=== PATIENT | female | born 1995 | race Caucasian/White ===

== ENCOUNTER 2019-08-18 23:35 | Observation (INO) | payer MEDICAID, SELFPAY ==
--- NOTE | 2019-08-18 23:35 | OBADM ---
This patient, Krissy Hobbs, admitted to the OB room [facility] for observation. Patient/family oriented to hospital policies and general routines including ID bracelet, bed and alarms, visiting hours, pain management, procedures, bathroom and other care routines, personal items, smoking policy, room service/diet, and visiting hours. Patient/Family are encouraged to report perceived risks to care and to ask questions if they do not understand what they are told or what they should do.
[2019-08-19] VITALS: BMI 64.4
[2019-08-19 00:18] VITALS: BP 94/75; PULSE 122
--- NOTE | 2019-08-19 01:10 | PC.NURSE ---
Nitrazine test performed. Test negative for amniotic fluid presence.
--- NOTE | 2019-08-19 01:15 | PC.NURSE ---
Dr. Hernández notified of patient complaint of bilateral hip pain, back pain, vaginal pain. Patient reports pain over the last 3 weeks that increases with movement. Patient also reports SOB with movement. Patient is a walk-in patient who had care through 06/21/[address] Rose in [place], [place]. has been sent to our unit and was reviewed by RN. Patient states she has not had an OB appointment since 06/21/2019 because she has recently moved and has not established care. Nitrazine test was performed after patient reported increased discharge for 3 weeks, nitrazine results were negative for amniotic fluid. FHT reactive category 1. No contractions noted via TOCO monitoring and patient denies cramping or abdominal tightening. VSS. Orders received for UA, Urine drug screen, GBS collected, and SVE.
[2019-08-19 01:22] VITALS: BP 94/75; PULSE 122
[2019-08-19 01:56] LABS: Add Urine Microscopic? YES; Amorphous Sediment Urine Few; Appearance Urine Cloudy (Clear); Bacteria Urine Trace /hpf; Bilirubin Urine Negative (Negative); Blood Urine Negative (Negative); Color Urine Yellow (Yellow); Glucose Urine UA Negative (Negative); Ketones Urine Negative (Negative); Leukocyte Esterase Ur 1+ LEU/UL (Negative); Mucus Urine Rare /lpf; Nitrate Urine Negative (Negative); Protein Urine Negative (Negative); RBC Urine 0-2 /hpf (0-2); Squamous Epithelial Cell Urine Many /hpf (Few); Urobilinogen Urine Negative mg/dL (<2.0); WBC Urine 0-3 /hpf
--- NOTE | 2019-08-19 01:59 | PC.NURSE ---
Dr. Hernández notified of UA results. SVE was closed/thick/high. Order for discharge given. Patient to call for follow-up tomorrow.
--- NOTE | 2019-08-19 02:11 | PC.NURSE ---
Discharge information reviewed with patient. Patient instructed to call Dr. Hernández's office in AM to schedule up follow-up appointment. Patient signed consent for release of information to Dr. Hernández's office. Patient educated on importance of care and establishing an OB prior to delivery. Patient states understanding.
[2019-08-19 02:12] LABS: Amphetamine Screen Urine Negative (Negative); Barbiturate Screen Urine Negative (Negative); Benzodiazepines Screen Urine Negative (Negative); Cannabinoid Screen Urine Negative (Negative); Cocaine Screen Urine Negative (Negative); Methadone Screen Urine Negative (Negative); Opiate Screen Urine Negative (Negative); Phencyclidine Screen Urine Negative (Negative)
--- NOTE | 2019-09-04 10:18 | P.PNOB_ITS ---
OB - Triage/Final Diagnosis Evaluation Laboratory results: Laboratory Tests 08/19/19 08/19/19 01:41 01:42 Urine Color Yellow Urine Appearance Cloudy H Urine pH 7.0 Ur Specific Miller 1.020 Urine Protein Negative Urine Glucose (UA) Negative Urine Ketones Negative Ur Blood (Man) Negative Urine Nitrate Negative Urine Bilirubin Negative Urine Urobilinogen Negative Leukocyte Esterase Rfl 1+ H Urine RBC 0-2 Urine WBC 0-3 Ur Squamous Epith Cells Many H Amorphous Sediment Few H Urine Bacteria Trace Hyaline Casts 1-2 Urine Mucus Rare Urine Opiates Screen Negative Urine Methadone Screen Negative Ur Barbiturates Screen Negative Ur Phencyclidine Scrn Negative Ur Amphetamine Screen Negative U Benzodiazepines Scrn Negative Urine Cocaine Screen Negative U Cannabinoids Screen Negative Final Diagnosis (1) Back pain affecting : Code(s): O99.89 - Other specified diseases and conditions complicating , childbirth and the puerperium; M54.9 - Dorsalgia, unspecified Status: Acute
== END 2019-08-19 02:25 | disposition home or self-care (01) ==
PROVIDERS: Admitting Provider Obstetrics & Gynecology; Visit Provider Obstetrics & Gynecology
DX: O99.89 Other specified diseases and conditions complicating pregnancy, childbirth and the puerperium (principal); M54.9 Dorsalgia, unspecified; Z3A.35 35 weeks gestation of pregnancy
CPT/HCPCS: 59025; 80307; 81001; 87081; G0378; G0379

== ENCOUNTER 2023-12-28 23:37 | Emergency (ER) | payer OTHER, SELFPAY ==
[2023-12-28 23:37] VITALS: BP 119/70; PULSE 102; RESP 16; TEMP 38.5; O2SAT 93
[2023-12-29] MEDS: SODIUM CHLORIDE 0.9% IV 1,000 ML 999 ML IV CONT (00:12)
[2023-12-29] MEDS: ONDANSETRON INJ 4 MG/2 ML VIAL IV PUSH (00:12)
[2023-12-29] MEDS: KETOROLAC 30 MG/ML VIAL (*BKC) IV PUSH (00:12)
[2023-12-29 00:21] LABS: Alanine Aminotransferase 58 U/L (14-59); Albumin Level 3.2 g/dL (3.4-5.0); Alkaline Phosphatase 45 U/L (46-116); Anion Gap 10 mmol/L (4-12); Aspartate Amino Transferase 57 U/L (15-37); Basophils Absolute Auto 0.02 K/mm3 (0.00-0.10); Basophils Percent Auto 0.7 % (0.0-1.0); Bilirubin,Total 0.5 mg/dL (0.00-1.00); Blood Urea Nitrogen 10 mg/dL (7-18); Calcium 8.3 mg/dL (8.5-10.1); Carbon Dioxide 28 mmol/L (21-32); Chloride 98 mmol/L (98-108); Eosinophils Absolute Auto 0.11 K/mm3 (0.02-0.50); Eosinophils Percent Auto 3.7 % (1.0-6.0); Estimated CRCL calculation 113 ml/min; Estimated Glomerular Filt Rate > 60; Glucose 109 mg/dL (70-99); Hematocrit 37.5 % (35.0-49.0); Immature Granulocyte Absolute 0.03 K/mm3 (0.00-0.00); Lipase 20 U/L (16-77); Lymphocytes Absolute Auto 0.47 K/mm3 (1.10-4.50); Mean Corpuscular Hemoglobin 28.8 pg (27.0-31.0); Mean Corpuscular Volume 89.9 fL (78.0-102.0); Mean Platelet Volume 8.8 fl (9.2-11.8); Monocytes Absolute Auto 0.28 K/mm3 (0.10-0.90); Monocytes Percent Auto 9.5 % (2.0-11.0); Neutrophils Absolute Auto 2.03 K/mm3 (1.70-7.20); Neutrophils Percent Auto 69.1 % (50.0-70.0); Osmolality Calculated 282 mOsm/kg (285-295); Platelet Count Result 172 K/mm3 (150-420); Potassium 3.9 mmol/L (3.5-5.1); Red Blood Count 4.17 M/mm3 (4.20-5.40); Sodium 136 mmol/L (136-145); Total Protein 6.8 g/dL (6.4-8.2); White Blood Count 2.9 K/mm3 (4.8-10.8)
[2023-12-29 00:23] LABS: Lactic Acid Reflex 0.8 mmol/L (0.4-2.0)
--- NOTE | 2023-12-29 00:32 | ED.NAVMDI ---
HPI - Nausea/Vomiting/Diarrhea General Chief complaint: Nausea/Vomiting/Diarrhea Stated complaint: Dizzy, Vomiting, Body Aches Time Seen by Provider: 12/28/23 23:45 Source: patient Mode of arrival: ambulatory Limitations: no limitations History of Present Illness HPI Narrative: patient is a 28-year-old female with a significant past medical history that presents today with nausea vomiting diarrhea. Patient states she has ongoing problem of diarrhea since yesterday. She has not been able the home also had a fever as well. He is taking OTC medications with no relief. She states that she is not able hold down any foods or liquids as well. MD elicited complaint: nausea, vomiting and diarrhea Onset (ago): day(s) Description of vomiting: food contents and watery Description of diarrhea: watery Associated nausea: Yes Associated abdominal pain: Yes Location of pain: diffuse Radiation: diffuse Pain consistency: constant Severity: moderate Pain scale (0-10): 4 Quality: stabbing Exacerbating factors: eating, vomiting and movement Relieving factors: bowel movement Associated symptoms: fever/chills, headaches, nausea/vomiting and altered mental status Related Data Allergies Allergy/AdvReac Type Severity Reaction Status Date / Time azithromycin AdvReac Hives Verified 12/28/23 23:52 [From Zithromax Z-Yaw] Review of Systems Review of Systems: All systems reviewed & are unremarkable except as noted in HPI and below Constitutional: Constitutional: Reports as per HPI Eyes: Eyes: Reports no additional eye complaints ENT: Reports system reviewed and no additional complaints, except as documented Cardiovascular: Cardiovascular: Reports no additional cardiovascular complaints Respiratory: Respiratory: Reports no additional respiratory complaints Gastrointestinal: Gastrointestinal: Reports no additional gastrointestinal complaints Genitourinary: Genitourinary: Reports no additional female genitourinary complaints Musculoskeletal: Musculoskeletal: Reports no additional musculoskeletal complaints Integumentary/Breasts: Skin/Breast: Reports system reviewed and no additional complaints, except as docu Neurologic: Reports system reviewed and no additional complaints, except as documented Psychiatric: Psychiatric: Reports no additional psychiatric complaints Endocrine: Endocrine: Reports no additional endocrine complaints Hematologic/Lymphatic: Hematologic/Lymphatic: Reports no additional hematologic/lymphatic complaints Allergic/Immunologic: Allergic/Immunologic: Reports no additional allergic/immunologic complaints Exam Const: General: healthy appearing Nutritional Appearance: well nourished Orientation/consciousness: patient oriented x3 HENMT: Head: normal to inspection Ears: external ears normal Face/Nose/Sinus: Normal external nose present Face and sinus: normal facial exam Eyes: Conjunctivae: conjunctivae normal Cornea: corneas normal Pupils: Equal, round and reactive pupils present EOM: EOMs intact bilaterally Neck: Neck: normal visual inspection Chest: Chest palpation & inspection: normal inspection of the chest Resp: Effort & Inspection: normal respiratory effort Auscultation: clear to auscultation bilaterally Cardio: Rate: regular rate Rhythm: regular rhythm GI: GI Palp: Yes Tenderness to palpation present (GI), Yes Guarding due to palpation present (GI) and Yes Rigid due to palpation : General: Yes bladder normal to palpation External Female Exam: normal external appearance Speculum Exam - Vagina: normal appearance of the vagina Speculum Exam - Cervix: normal appearance of the cervix Back/Spine/Pelvis: Back: no CVA tenderness Skin: General skin exam: normal color Rashes: no rashes Wounds: no wounds Neuro: General: patient oriented x3 Cranial nerves: Yes Nystagmus not present Speech: normal speech Extrem: General: normal to inspection Psych: Mental Status: mental status grossly normal
--- NOTE | 2023-12-29 00:42 | PC.NURSE ---
pt ambulated to restroom without incident.
[2023-12-29 01:17] VITALS: BP 122/70; PULSE 74; RESP 16; TEMP 38.2; O2SAT 93
== END 2023-12-29 01:17 | disposition home or self-care (01) ==
LOC: CHSED 12-29 01:08
PROVIDERS: Emergency Provider Family Medicine; PCP Physician Assistant
DX: K52.9 Noninfective gastroenteritis and colitis, unspecified (principal)
CPT/HCPCS: 36415; 80053; 83605; 83690; 85025; 96361; 96374; 96375; 99284; J1885; J2405; J7030

== ENCOUNTER 2025-01-22 21:46 | Emergency (ER) | payer OTHER, SELFPAY ==
[2025-01-22 21:46] VITALS: BP 121/102; PULSE 84; RESP 18; TEMP 36.2; O2SAT 97
--- OUTSIDE RECORDS SUMMARY | 2025-01-22 21:47 | XMS_ITS | Clinical Summary ---
Author Organization [facility] Address [address] [place] [id number] Care Team Providers Care Laborer Pole Crew Name Role Phone Adilson Marcial Primary Care Provider [phone] Allergies Active Allergy Reactions Criticality Noted Date Comments Azithromycin Hives 06/30/2022 Medications No known medications Active Problems No known active problems Social History Tobacco Use Types Packs/Day Years Used Date Smoking Tobacco: Never Smokeless Tobacco: Never Tobacco Cessation:Counseling Given: Not Answered Alcohol Use Standard Drinks/Week Comments Not Currently 0 (1 standard drink = 0.6 oz pur e alcohol) Comments No Sex and Gender Information Value Date Recorded Sex Assigned at Female 06/26/2024 2:36 PM [employer] Sex Female 12:54 PM CDT Gender Identity Not on file Sexual Orientation Not on file Last Filed Vital Signs Vital Sign Reading Time Taken Comments Blood Pressure 137/97 06/26/2024 2:00 PM [employer] Pulse 86 06/26/2024 2:00 PM [employer] Temperature 36.3 C (97.4 F) 06/26/2024 2:00 PM [employer] Respiratory Rate 20 06/26/2024 2:00 PM [employer] Oxygen Saturation 100% 06/26/2024 2:00 PM [employer] Inhaled Oxygen Concentration - - Weight 183.3 kg (404 lb) 06/26/2024 2:00 PM [employer] Height 157.5 cm (5' 2) 06/26/2024 2:00 PM [employer] Body Mass Index 73.89 06/26/2024 2:00 PM [employer] Plan of Treatment Health Maintenance Due Date Last Done Comments Cervical Cancer Screening Pap Smear (Age 21 to 29) Every 3 Years 1997 Cervical Cancer Screening 1997 Annual Physical 2000 Hepatitis C 2015 COVID-19 Vaccine (2023- season) 2024 DTaP, Tdap and Td Vaccines (9 - Td or Tdap) 03/10/2030 03/10/2020, 08/09/2019, 09/30/2018, Additional history exists Hepatitis B Vaccines Completed 03/21/1998, 1997, 1997 HPV Vaccines Completed 08/26/2012, 11/01/2012, 01/15/2012 Meningococcal Vaccine Completed 01/18/2015, 012 Meningococcal B Vaccine Aged Out No l onger eligible based on patient's age to complete this topic Pneumococcal Vaccine: Pediatrics (0 to 5 Years) and At-Risk Patients (6 to 49 Years) Aged Out No longer eligible based on patient's age to complete this topic RSV Immunizations Under 20 Months Aged Out No longer eligible based on patient's age to complete this topic Insurance [facility] Care Teams Laborer Pole Crew Relationship Specialty Start Date End Date Adilson Marcial PA PCP - General PHYSICIAN TRANSITION ASSISTANT 06/30/22
--- NOTE | 2025-01-22 22:02 | ED_ITS ---
HPI - General Adult General Chief complaint: Upper Respiratory Infection Stated complaint: sore throat Time Seen by Provider: 01/22/25 21:54 History of Present Illness HPI narrative: Krissy is a previously healthy 29F that presented to the ED with her daughter with sore throats and a low grade fever.. It started a few days ago. No CP, dyspnea, or vomiting. Related Data Allergies Allergy/AdvReac Type Severity Reaction Status Date / Time azithromycin (From Zithromax AdvReac Hives Verified 01/22/25 22:00 Z-Yaw) Review of Systems Review of Systems: All systems reviewed & are unremarkable except as noted in HPI and below Exam Const: General: cooperative, healthy appearing, comfortable, no acute distress, well developed, alert, awake and Physically active Orientation/consciousness: oriented to person, oriented to place and oriented to time HENMT: Head: normal to inspection, normocephalic and atraumatic Ears: hearing grossly normal bilaterally and external ears normal Face/Nose/Sinus: Normal external nose present Eyes: General: appearance normal, both eyes and all related structures Periorbital: periorbital findings normal Sclera: sclerae normal Pupils: Equal, round and reactive pupils present Neck: Neck: normal visual inspection Chest: Chest palpation & inspection: normal inspection of the chest Resp: Effort & Inspection: normal respiratory effort, able to speak in complete sentences and no respiratory distress Auscultation: clear to auscultation bilaterally Cardio: Jugular venous distension: no JVD Rate: regular rate Rhythm: regular rhythm Skin: General skin exam: normal color and no rashes or lesions noted Neuro: General: oriented to person, oriented to place and oriented to time Cranial nerves: Yes Equal, round and reactive pupils present Extrem: General: normal to inspection Course Vital Signs Vital signs: Vital Signs Temperature 97.1 F L 01/22/25 21:46 Pulse Rate 84 01/22/25 21:46 Respiratory Rate 18 01/22/25 21:46 Blood Pressure 121/102 H 01/22/25 21:46 Pulse Oximetry 97 01/22/25 21:46 Oxygen Delivery Room Air 01/22/25 21:46 Temperature 97.1 F L 01/22/25 21:46 Pulse Rate 84 01/22/25 21:46 Respiratory Rate 18 01/22/25 21:46 Blood Pressure 121/102 H 01/22/25 21:46 Pulse Oximetry 97 01/22/25 21:46 Oxygen Delivery Room Air 01/22/25 21:46 Medical Decision Making Vital Signs Vital Signs: Vital Signs Temperature 97.1 F L 01/22/25 21:46 Pulse Rate 84 01/22/25 21:46 Respiratory Rate 18 01/22/25 21:46 Blood Pressure 121/102 H 01/22/25 21:46 Pulse Oximetry 97 01/22/25 21:46 Oxygen Delivery Room Air 01/22/25 21:46 Temperature 97.1 F L 01/22/25 21:46 Pulse Rate 84 01/22/25 21:46 Respiratory Rate 18 01/22/25 21:46 Blood Pressure 121/102 H 01/22/25 21:46 Pulse Oximetry 97 01/22/25 21:46 Oxygen Delivery Room Air 01/22/25 21:46 Lab Data Labs: Lab Results 01/22/25 01/22/25 Range/Units 21:57 21:58 Influenza A (RT-PCR) Negative (Negative) Influenza B (RT-PCR) Negative (Negative) RSV (RT-PCR) Negative (Negative) SARS-CoV-2 RNA (RT-PCR) Negative (Negative) Group A Strep (PCR) Not detected (Negative) Discharge Plan Discharge Clinical Impression: Upper respiratory infection Patient Disposition: Home Condition: Stable Instructions: Antibiotic Form Patient Language: [place]se Prescriptions: No Action ondansetron 4 mg tablet,disintegrating 4 mg PO Q6H PRN (Reason: nausea and vomiting) Qty: 30 0RF Follow-up/Referrals: Aniket,SAMEER Monsivais [Primary Care Provider] -
[2025-01-22 22:42] LABS: Strep Group A RT-PCR NOT DETECTED (Negative)
[2025-01-22 22:54] LABS: Influenza A QL RT-PCR Negative (Negative); Influenza B QL RT-PCR Negative (Negative); RSV RNA, RT-PCR Negative (Negative); SARS-CoV-2 RNA PCR Negative (Negative)
[2025-01-22 22:59] VITALS: BP 139/90; PULSE 82; RESP 17; TEMP 36.5; O2SAT 98
== END 2025-01-22 23:15 | disposition home or self-care (01) ==
PROVIDERS: Emergency Provider Family Medicine; PCP Physician Assistant
DX: J06.9 Acute upper respiratory infection, unspecified (principal); Z20.822 Contact with and (suspected) exposure to COVID-19
CPT/HCPCS: 87637; 87651; 99283

== ENCOUNTER 2025-02-25 08:31 | Emergency (ER) | payer OTHER, SELFPAY ==
--- NOTE | ~2025-02-25 | XR_ITS ---
Examination: XR chest 1V portable Clinical History: Shortness of breath x2 days; worsening Comparison: None Technique: Portable AP Findings: Heart size normal. Lungs clear. No acute bony abnormality. IMPRESSION: 1. No acute cardiopulmonary findings given portable technique. Reviewed, dictated and finalized at location R.
[2025-02-25 08:31] VITALS: BP 158/87; PULSE 107; RESP 18; TEMP 36.6; O2SAT 96
[2025-02-25 09:28] LABS: Influenza A QL RT-PCR Negative (Negative); Influenza B QL RT-PCR Negative (Negative); RSV RNA, RT-PCR Negative (Negative); SARS-CoV-2 RNA PCR Negative (Negative)
--- NOTE | 2025-02-25 09:37 | ED_ITS ---
HPI - URI/Sore Throat General Chief Complaint: Upper Respiratory Infection Stated Complaint: uri Source: patient Mode of arrival: ambulatory Limitations: no limitations History of Present Illness HPI Narrative: this is a 29-year-old female with a 3 day history of sinus congestion and drainage with some no shortness of breath no audible wheezing no fever chills does have sinus pressure with bilateral ear pressure with no nausea vomiting no abdominal pain no chest pain. MD elicited complaint: cough, nasal congestion and sinus pain Severity: mild Related Data Allergies Allergy/AdvReac Type Severity Reaction Status Date / Time venom-wasp Allergy Intermediate Swelling Verified 02/25/25 08:52 azithromycin (From Zithromax AdvReac Hives Verified 02/25/25 08:52 Z-Yaw) Review of Systems Review of Systems: All systems reviewed & are unremarkable except as noted in HPI and below Exam Const: General: healthy appearing Nutritional Appearance: well nourished Orientation/consciousness: patient oriented x3 Limitations: no limitations HENMT: Other: Frontal and maxillary sinus tenderness to palpation of bilateral ear dullness and nasal turbinates inflamed and congested and erythematous. Neck: Neck: normal visual inspection Chest: Chest palpation & inspection: normal inspection of the chest Resp: Effort & Inspection: normal respiratory effort Auscultation: clear to auscultation bilaterally Cardio: Rate: regular rate Rhythm: regular rhythm GI: GI Palp: Yes Soft to palpation Skin: General skin exam: normal color Rashes: no rashes Neuro: General: patient oriented x3, moves all extremities and no meningeal signs Course Course Emergency Course: Patient had a chest x-ray performed which shows no acute cardiopulmonary abnormalities COVID influenza RSV negative and will administer a dose of Augmentin for sinus infection. Vital Signs Vital signs: Vital Signs Temperature 36.6 C 02/25/25 08:31 Pulse Rate 107 H 02/25/25 08:31 Respiratory Rate 18 02/25/25 08:31 Blood Pressure 158/87 H 02/25/25 08:31 Pulse Oximetry 96 02/25/25 08:31 Oxygen Delivery Room Air 02/25/25 08:31 Temperature 36.6 C 02/25/25 08:31 Pulse Rate 107 H 02/25/25 08:31 Respiratory Rate 18 02/25/25 08:31 Blood Pressure 158/87 H 02/25/25 08:31 Pulse Oximetry 96 02/25/25 08:31 Oxygen Delivery Room Air 02/25/25 08:31 MDM - URI/Sore Throat Lab Data Labs: Lab Results 02/25/25 Range/Units 08:46 Influenza A (RT-PCR) Negative (Negative) Influenza B (RT-PCR) Negative (Negative) RSV (RT-PCR) Negative (Negative) SARS-CoV-2 RNA (RT-PCR) Negative (Negative) Critical Care Time Critical Care Time Critical Care Time: No Discharge Plan Discharge Clinical Impression: Sinusitis Qualifiers: Sinusitis location: frontal Chronicity: acute Recurrence: non-recurrent Qualified Code(s): J01.10 - Acute frontal sinusitis, unspecified Patient Disposition: Home Condition: Stable Instructions: Antibiotic Form, Sinusitis (ED) Additional Instructions: Advised patient to take medication as prescribed and to follow with primary if symptoms persist or worsen. Patient Language: [place] Prescriptions: New amoxicillin-pot clavulanate [Augmentin] 500-125 mg tablet 1 tablet PO TID Qty: 30 0RF methylprednisolone [Medrol (Yaw)] 4 mg tablets,dose pack See Rx Instructions .ROUTE .COMPLEX Qty: 21 0RF Rx Instructions: for 6 days No Action ondansetron 4 mg tablet,disintegrating 4 mg PO Q6H PRN (Reason: nausea and vomiting) Qty: 30 0RF Follow-up/Referrals: Zeke,Marcela Rodriguez [Other] Time of Disposition: 09:40
--- NOTE | 2025-02-25 09:42 | PC.NURSE ---
ERP aware of pt's vitals. No new orders.
[2025-02-25 10:02] VITALS: BP 138/87; PULSE 97; RESP 17; O2SAT 96
== END 2025-02-25 10:02 | disposition home or self-care (01) ==
PROVIDERS: Emergency Provider Emergency Medicine
DX: J01.10 Acute frontal sinusitis, unspecified (principal); Z20.822 Contact with and (suspected) exposure to COVID-19
CPT/HCPCS: 71045; 87637; 99283; A9270